=== PATIENT | female | born 1990 | race Caucasian/White ===

== ENCOUNTER 2020-01-01 19:56 | Observation (INO) | payer SELFPAY ==
[2020-01-01] VITALS (8 sets, daily range): BP systolic 107–141; BP diastolic 55–90; PULSE 87–94; RESP 11–18; TEMP 36.1–36.8; O2SAT 98–100
--- NOTE | 2020-01-01 | PATH_ITS ---
[facility] Accession Number: [id number] . 01 Material submitted: . product of conception - PRODUCTS OF CONCEPTION . 02 Diagnosis: Products of Conception, Removal: No chorionic villi identified. Decidualized endometrium with Sellers-Sofia changes. No evidence of neoplasia or hyperplasia. MRV 01/06/2020 1309 Local . 02 Electronically signed: . Annabelle Joseph MD, Pathologist NPI- [id number] . 01 Gross description: . The specimen is received in formalin, labeled products of conception, and consists of multiple red-brown fragments of soft tissue and clotted blood measuring 4.0 x 3.0 x 2.0 cm in aggregate. No chorionic villi or parts are identified. The specimen is entirely submitted in cassettes A1-A3. ([id number]) /FRR 01/03/2020 1531 Local . 02 Pathologist provided ICD-10: O73.0 . 02 CPT . 083215 Performed at: 01 [facility] [address] [facility] [place], [place], [place] [id number] MD Stone Pires MD Phone: [phone] Performed at: 02 [facility] [address] [place], [place] [id number] MD Annabelle Joseph MD Phone: [phone]
--- NOTE | 2020-01-01 20:27 | DI.US.S_ITS ---
PROCEDURE: US PELVIC COMPLETE INDICATIONS: SEVERE PAIN POST SURGICAL TAB TODAY TECHNIQUE: Real-time scanning was performed of the pelvic organs, with image documentation. Additional endovaginal scanning was necessary due to incomplete visualization of the adnexal and endometrial structures by transabdominal scanning. COMPARISON: None. FINDINGS: Transabdominal scanning: Limited scanning through the kidneys shows no hydronephrosis. No pathologic free abdominal or pelvic fluid. Endovaginal scanning: Uterus: Uterus is normal in size at 9.0 x 5.9 x 2.6 cm. The endometrium measures 12.0 mm in combined thickness. There is a small 0.7 x 0.6 x 0.7 centimeter complex fluid collection in the endometrial cavity. No pole or yolk sac identified in the endometrial fluid collection. Ovaries: Ovaries are not identified and cannot be evaluated. IMPRESSION: Small 0.7 x 0.6 x 0.7 centimeter complex fluid collection in the endometrial cavity. Finding is nonspecific may represent clot or retained products of conception. Recommend correlation with beta HCG and short-term follow-up ultrasound. Dictated by: Stacey Hameed MD, PhD on 01/01/2020 at 21:54 Approved by: Stacey Hameed MD, PhD on 01/01/2020 at 21:57
[2020-01-01] MEDS: SODIUM CHLORIDE 0.9% 1,000 ML 1000 ML IV (20:43)
[2020-01-01] MEDS: KETOROLAC 60 MG/2 ML VIAL 15 MG IV (20:43)
[2020-01-01] MEDS: HYDROMORPHONE 0.5 MG INJ IV ×4 (20:43→21:58)
[2020-01-01 20:44] LABS: Add Manual Diff / Slide Review NO; Basophils Absolute Auto 0 /uL (0-100); Basophils Percent Auto 0.1 % (0-2); Eosinophils Absolute Auto 0 /uL (0-450); Eosinophils Percent Auto 0.6 % (2-4); Hematocrit 38.5 % (36-46); Hemoglobin 13.2 g/dL (12.0-16.0); Lymphocytes Absolute Auto 1000 /uL (1100-4500); Lymphocytes Percent Auto 14.7 % (25-40); Mean Corpuscular HGB Conc 34.3 % (30-36); Mean Corpuscular Hemoglobin 30.2 PG (26-34); Mean Corpuscular Volume 88.1 fL (80-100); Monocytes Absolute Auto 0 /uL (0-900); Monocytes Percent Auto 0.3 % (3-14); Neutrophils Absolute Auto 5900 /uL (1500-7000); Neutrophils Percent Auto 84.3 % (50-75); Platelet Count 260 X10^3/uL (150-400); Red Blood Cell Count 4.37 X10^6/uL (4.0-5.2); Red Cell Distribution Width 11.7 % (11.6-14.8)
[2020-01-01] MEDS: ONDANSETRON 4 MG/2 ML INJ IV (20:46)
[2020-01-01 20:54] LABS: Alanine Aminotransferase 15 IU/L (<35); Albumin 4.3 g/dL (3.5-5.0); Albumin Globulin Ratio 1.2 (1.0-2.8); Alkaline Phosphatase 50 U/L (38-126); Aspartate Aminotransferase 22 IU/L (14-36); BUN Creatinine Ratio 14.6 (6-22); Bilirubin Total 0.3 mg/dL (0.2-1.3); Blood Urea Nitrogen 15 mg/dL (7-17); Calcium 9.3 mg/dL (8.4-10.2); Carbon Dioxide 27 mmol/L (22-32); Chloride 103 mmol/L (98-107); Estimated Glomerular Filt Rate > 60.0 mL/min (>60); Globulin 3.5 g/dL (1.7-4.1); Glucose 78 mg/dL (70-100); HEMOLYSIS < 15 (0-50); Potassium 4.2 mmol/L (3.4-5.1); Sodium 136 mmol/L (137-145); Total Protein 7.8 g/dL (6.3-8.2)
--- NOTE | 2020-01-01 21:55 | ED_ITS ---
HPI - Abdominal Pain <Melissa Yanes MD - Last Filed: 01/01/20 22:59> General Chief Complaint: Abdominal Pain Stated Complaint: States in [place], not feeling well Time Seen by Provider: 01/01/20 20:20 Source: patient Mode of arrival: Wheelchair Limitations: no limitations History of Present Illness HPI narrative: 29-year-old presents approximately 8 hours after medical t ermination of 6 week . Procedure was done in [place], patient is on the way back to her home in [place]. She began having severe abdominal pain cramping vomiting and presents for further evaluation today. She reports scant vaginal bleeding only. She notes that her 1st was at 6 weeks and complicated by significant bleeding issues that required a 2nd trip back to the operating room and a 2 week follow-up hospital stay. She is not clear on any of the remainder of the medical details. Medication she has taken today include 2 Valium prior to her procedure, conscious sedation with IV medications (presumed Versed and fentanyl but not confirmed) 1 marijuana edible and 3 Tylenol. Related Data Allergies Allergy/AdvReac Type Severity Reaction Status Date / Time No Known Drug Allergies Allergy Verified 01/01/20 20:38 Review of Systems <Melissa Yanes MD - Last Filed: 01/01/20 22:59> Review of Systems Narrative: Pertinent positive and negative findings as per HPI Remainder of review of systems is otherwise unremarkable for Constitutional: Fevers, chills, weakness ENT: No sore throat, neck pain, ear pain CV: Chest pain, palpitations, dyspnea on exertion Respiratory: Cough, wheeze, dyspnea MS: Muscle weakness, numbness, Skin: Rashes, nonhealing lesions Neuro: Syncope, dizziness, tingling Patient History <Melissa Yanes MD - Last Filed: 01/01/20 22:59> Surgical History (Updated 01/01/20 @ 22:00 by Melissa Yanes MD) H/O breast augmentation (Acute) Social History Smoking Status: Never smoker Smoking Status: Never smoker alcohol intake frequency: a few times a month Substance Use Type: marijuana Exam <Melissa Yanes MD - Last Filed: 01/01/20 22:59> Narrative Exam Narrative: General: Healthy appearing, significant mid pelvic pain HEENT: Moist mucous membranes, normal sclera with reactive pupils, Respiratory: Lungs are clear to auscultation, no wheezing no rales no rhonchi. Full and symmetrical air movement Cardiac: Regular rate and rhythm no murmurs no bruits Abdomen: Soft tender suprapubic area, good bowel tones, no flank pain Skin: Warm and dry, no rashes Neurologic: Grossly neurologically intact with no obvious asymmetries or abnormalities Extremities: No trauma, well perfused Psych: Cooperative, appropriate insight and affect Initial Vital Signs Initial Vital Signs: Vital Signs Temperature 98.2 F 01/01/20 20:07 Pulse Rate 88 01/01/20 20:07 Respiratory Rate 18 01/01/20 20:07 Blood Pressure 141/90 H 01/01/20 20:07 Pulse Oximetry 100 01/01/20 20:07 <Jenny Dsouza MD - Last Filed: 01/01/20 22:29> Initial Vital Signs Initial Vital Signs: Vital Signs Temperature 98.2 F 01/01/20 20:07 Pulse Rate 88 01/01/20 20:07 Respiratory Rate 18 01/01/20 20:07 Blood Pressure 141/90 H 01/01/20 20:07 Pulse Oximetry 100 01/01/20 20:07 Course <Melissa Yanes MD - Last Filed: 01/01/20 22:59> Orders Ordered: ED Orders 01/01/20 20:27 US pelvic complete Stat 01/01/20 20:37 Complete Blood Count AUTO DIFF Stat Comprehensive Metabolic Panel Stat 01/01/20 21:57 COVID19 Stat Fentanyl (Sublimaze) 0 mcg IV Q5M PRN PRN Reason: Pain, Moderate (4-6) Hydromorphone HCl (Dilaudid) 0.5 mg IV Q15MIN PRN PRN Reason: Pain, Last Admin: 01/01/20 21:44 Dose: 0.5 mg Documented by: Admin: 01/01/20 21:16 Dose: 0.5 mg Documented by: Admin: 01/01/20 20:43 Dose: 0.5 mg Documented by: RMARTIN Hydromorphone HCl (Dilaudid) 0.5 mg IV Q15MIN PRN PRN Reason: Pain, Last Admin: 01/01/20 21:58 Dose: 0.5 mg Documented by: NASEEM Cefazolin Sodium/Dextrose (Ancef) 2 gm in 100 mls @ 200 mls/hr IV PREOP JESICA Meperidine HCl (Demerol) 12.5 mg IV PACUNOW PRN PRN Reason: Mild pain or shivering Metoclopramide HCl (Reglan) 10 mg IV NOW PRN PRN Reason: Nausea And Vomiting Ondansetron HCl (Zofran) 4 mg IV NOW PRN PRN Reason: Nausea And Vomiting Oxycodone/Acetaminophen (Percocet 5/325) 1 tab PO PACUNOW PRN PRN Reason: Mild or Moderate Pain Discontinued Medications Sodium Chloride (Normal Saline 0.9%) 1,000 mls @ 1,000 mls/hr IV BOLUS ONE Stop: 01/01/20 21:26 Last Infusion: 01/01/20 22:45 Dose: 0 mls/hr Documented by: Admin: 01/01/20 20:43 Dose: 1,000 mls/hr Documented by: NASEEM Ketorolac Tromethamine (Toradol) 15 mg IV NOW ONE Stop: 01/01/20 20:28 Last Admin: 01/01/20 20:43 Dose: 15 mg Documented by: NASEEM Ondansetron HCl (Zofran) 4 mg IV NOW ONE Stop: 01/01/20 20:45 Last Admin: 01/01/20 20:46 Dose: 4 mg Documented by: NASEEM Oxycodone/Acetaminophen (Endocet 5/325 Prepack) 1 bottle MIS SEEINSTR ONE Stop: 01/01/20 22:04 Last Admin: 01/01/20 22:09 Dose: 1 bottle Documented by: NASEEM Vital Signs Vital signs: Vital Signs - 8 hr 01/01/20 20:07 01/01/20 21:42 01/01/20 21:55 Temperature 98.2 F Pulse Rate 88 87 91 H Respiratory Rate 18 16 Blood Pressure 141/90 H 126/58 L Pulse Oximetry 100 98 98 01/01/20 22:00 Temperature Pulse Rate 87 Respiratory Rate Blood Pressure 127/59 L Pulse Oximetry 98 <Jenny Dsouza MD - Last Filed: 01/01/20 22:29> Orders Ordered: ED Orders 01/01/20 20:27 US pelvic complete Stat 01/01/20 20:37 Complete Blood Count AUTO DIFF Stat Comprehensive Metabolic Panel Stat 01/01/20 21:57 COVID19 Stat Fentanyl (Sublimaze) 0 mcg IV Q5M PRN PRN Reason: Pain, Moderate (4-6) Hydromorphone HCl (Dilaudid) 0.5 mg IV Q15MIN PRN PRN Reason: Pain, Last Admin: 01/01/20 21:44 Dose: 0.5 mg Documented by: Admin: 01/01/20 21:16 Dose: 0.5 mg Documented by: Admin: 01/01/20 20:43 Dose: 0.5 mg Documented by: NASEEM Hydromorphone HCl (Dilaudid) 0.5 mg IV Q15MIN PRN PRN Reason: Pain, Last Admin: 01/01/20 21:58 Dose: 0.5 mg Documented by: NASEEM Cefazolin Sodium/Dextrose (Ancef) 2 gm in 100 mls @ 200 mls/hr IV PREOP JESICA Meperidine HCl (Demerol) 12.5 mg IV PACUNOW PRN PRN Reason: Mild pain or shivering Metoclopramide HCl (Reglan) 10 mg IV NOW PRN PRN Reason: Nausea And Vomiting Ondansetron HCl (Zofran) 4 mg IV NOW PRN PRN Reason: Nausea And Vomiting Oxycodone/Acetaminophen (Percocet 5/325) 1 tab PO PACUNOW PRN PRN Reason: Mild or Moderate Pain Discontinued Medications Sodium Chloride (Normal Saline 0.9%) 1,000 mls @ 1,000 mls/hr IV BOLUS ONE Stop: 01/01/20 21:26 Last Infusion: 01/01/20 22:45 Dose: 0 mls/hr Documented by: Admin: 01/01/20 20:43 Dose: 1,000 mls/hr Documented by: NASEEM Ketorolac Tromethamine (Toradol) 15 mg IV NOW ONE Stop: 01/01/20 20:28 Last Admin: 01/01/20 20:43 Dose: 15 mg Documented by: NASEEM Ondansetron HCl (Zofran) 4 mg IV NOW ONE Stop: 01/01/20 20:45 Last Admin: 01/01/20 20:46 Dose: 4 mg Documented by: RMARTIN Oxycodone/Acetaminophen (Endocet 5/325 Prepack) 1 bottle MISC SEEINSTR ONE Stop: 01/01/20 22:04 Last Admin: 01/01/20 22:09 Dose: 1 bottle Documented by: RMVERONIKA Vital Signs Vital signs: Vital Signs - 8 hr 01/01/20 20:07 01/01/20 21:42 01/01/20 21:55 Temperature 98.2 F Pulse Rate 88 87 91 H Respiratory Rate 18 16 Blood Pressure 141/90 H 126/58 L Pulse Oximetry 100 98 98 01/01/20 22:00 Temperature Pulse Rate 87 Respiratory Rate Blood Pressure 127/59 L Pulse Oximetry 98 MDM - Abdominal Pain <Melissa Yanes MD - Last Filed: 01/01/20 22:59> Medical Records Attestation: I reviewed the patient's medical records. Lab Data Attestation: I reviewed the patient's lab results. Result diagrams: 01/01/20 20:37 01/01/20 20:37 Labs: Lab Results 01/01/20 01/01/20 01/01/20 Range/Units 20:37 20:37 21:57 WBC 7.0 (4.5-11.0) X10^3/uL RBC 4.37 (4.0-5.2) X10^6/uL Hgb 13.2 (12.0-16.0) g/dL Hct 38.5 (36-46) % MCV 88.1 (80-100) fL MCH 30.2 (26-34) PG MCHC 34.3 (30-36) % RDW 11.7 (11.6-14.8) % Plt Count 260 (150-400) X10^3/uL Neut % (Auto) 84.3 H (50-75) % Lymph % (Auto) 14.7 L (25-40) % Banner % (Auto) 0.3 L (3-14) % Eos % (Auto) 0.6 L (2-4) % Baso % (Auto) 0.1 (0-2) % Neut # (Auto) 5900 (4595-8090) /uL Lymph # (Auto) 1000 L (7174-7192) /uL Banner # (Auto) 0 (0-900) /uL Eos # (Auto) 0 (0-450) /uL Baso # (Auto) 0 (0-100) /uL Sodium 136 L (137-145) mmol/L Potassium 4.2 (3.4-5.1) mmol/L Chloride 103 (98-107) mmol/L Carbon Dioxide 27 (22-32) mmol/L BUN 15 (7-17) mg/dL Creatinine 1.03 (0.52-1.04) mg/dL Estimated GFR > 60.0 (>60) mL/min BUN/Creatinine Ratio 14.6 (6-22) Glucose 78 (70-100) mg/dL Calcium 9.3 (8.4-10.2) mg/dL Total Bilirubin 0.3 (0.2-1.3) mg/dL AST 22 (14-36) IU/L ALT 15 (<35) IU/L Alkaline Phosphatase 50 (38-126) U/L Total Protein 7.8 (6.3-8.2) g/dL Albumin 4.3 (3.5-5.0) g/dL Globulin 3.5 (1.7-4.1) g/dL Albumin/Globulin Ratio 1.2 (1.0-2.8) COVID-19 PCR Negative (Negative) Imaging Data Pelvic ultrasound: My Impression: Per Tech: Significant tenderness on exam, no free-fluid ovaries are not visualized there is no pole in the uterus however there still is a gestational sac in quite a bit of debris in the uterine cavity. Minimal vaginal bleeding only. [facility] Narrative Medical decision making narrative: 29-year-old woman now approximately 8 hours post medical with increased pelvic pain and retained products of conception noted on pelvic ultrasound. Pain is significant enough that she does not believe she will be able to cross [place] border [place] get back [place] to [place] and would like to proceed with D&C for definitive treatment. Care is reviewed with Dr. Dsouza who will be in shortly to take the patient to the operating room. <Jenny Dsouza MD - Last Filed: 01/01/20 22:29> Lab Data Labs: Lab Results 01/01/20 01/01/20 01/01/20 Range/Units 20:37 20:37 21:57 WBC 7.0 (4.5-11.0) X10^3/uL RBC 4.37 (4.0-5.2) X10^6/uL Hgb 13.2 (12.0-16.0) g/dL Hct 38.5 (36-46) % MCV 88.1 (80-100) fL MCH 30.2 (26-34) PG MCHC 34.3 (30-36) % RDW 11.7 (11.6-14.8) % Plt Count 260 (150-400) X10^3/uL Neut % (Auto) 84.3 H (50-75) % Lymph % (Auto) 14.7 L (25-40) % Banner % (Auto) 0.3 L (3-14) % Eos % (Auto) 0.6 L (2-4) % Baso % (Auto) 0.1 (0-2) % Neut # (Auto) 5900 (5100-1448) /uL Lymph # (Auto) 1000 L (9149-1834) /uL Banner # (Auto) 0 (0-900) /uL Eos # (Auto) 0 (0-450) /uL Baso # (Auto) 0 (0-100) /uL Sodium 136 L (137-145) mmol/L Potassium 4.2 (3.4-5.1) mmol/L Chloride 103 (98-107) mmol/L Carbon Dioxide 27 (22-32) mmol/L BUN 15 (7-17) mg/dL Creatinine 1.03 (0.52-1.04) mg/dL Estimated GFR > 60.0 (>60) mL/min BUN/Creatinine Ratio 14.6 (6-22) Glucose 78 (70-100) mg/dL Calcium 9.3 (8.4-10.2) mg/dL Total Bilirubin 0.3 (0.2-1.3) mg/dL AST 22 (14-36) IU/L ALT 15 (<35) IU/L Alkaline Phosphatase 50 (38-126) U/L Total Protein 7.8 (6.3-8.2) g/dL Albumin 4.3 (3.5-5.0) g/dL Globulin 3.5 (1.7-4.1) g/dL Albumin/Globulin Ratio 1.2 (1.0-2.8) COVID-19 PCR Negative (Negative) Discharge Plan Departure Patient Disposition: Admitted to Surgery Clinical Impression: Retained products of conception Discharge Date/Time: 01/01/20 22:49 Admit Date/Time: 01/01/20 22:45 Admit Provider: Jenny Dsouza
[2020-01-01] MEDS: OXYCODONE/APAP 5/325 PREPACK 1 BOTTLE MISC (22:09)
[2020-01-01 22:23] LABS: COVID19 -Nasal RAPID Negative (Negative)
--- NOTE | 2020-01-01 22:30 | PM.PREOP ---
Pre-operative Note COVID-19 COVID-19 status: Result pending Interval Note History & Physical reviewed/Exam performed by Physician: Yes Changes to H&P: No
--- NOTE | 2020-01-01 22:30 | PM.GYNHP.1 ---
History of Present Illness History of Present Illness Reason for admission: incomplete Narrative: Symone Sanford is a 29 year old female who comes into the ER complaining of severe lower abdominal pain after surgical termination earlier today. Patient was traveling and presented to the emergency room because of her severe pain. Patient does relate that she had a termination 6 years ago that she had retained products of conception and severe pain for days that she required additional surgery and was hospitalized for 2 weeks afterwards. [facility] Surgical History (Updated 01/01/20 @ 22:00 by Melissa Yanes MD) H/O breast augmentation (Acute) Social History Smoking Status: Never smoker Meds Home Medications and Allergies Allergies Allergy/AdvReac Type Severity Reaction Status Date / Time No Known Drug Allergies Allergy Verified 01/01/20 20:38 Review of Systems Review of Systems Narrative: Patient has nausea from her pain. No fevers. She has lower abdominal lower back pain but no upper abdominal pain. Mild vaginal bleeding. ROS: Yes All systems reviewed with the patient and are negative except as otherwise documented Exam Vital Signs (past 8 hours): - 01/01/20 20:07 01/01/20 21:42 01/01/20 21:55 Temperature 98.2 F Pulse Rate 88 87 91 H Respiratory Rate 18 16 Blood Pressure 141/90 H 126/58 L Pulse Oximetry 100 98 98 01/01/20 22:00 Temperature Pulse Rate 87 Respiratory Rate Blood Pressure 127/59 L Pulse Oximetry 98 Oxygen Delivery Method Room Air Narrative Exam Narrative: HEENT exam within normal limits. Lungs are clear to auscultation percussion. Heart is regular rate and rhythm no S3-S4 or murmurs. Abdomen is soft with mild tenderness in the lower abdomen without rebound. Minimal vaginal bleeding. Pelvic exam not performed. ER physician stated the pelvic exam was extremely tender to the patient. Extremities without edema and nontender. Objective Imaging US - abdomen: Radiologist's impression: Gestational sac with no pole measuring 6 weeks Labs Result Diagrams: 01/01/20 20:37 01/01/20 20:37 Labs: Laboratory Results - last 24 hr 01/01/20 01/01/20 01/01/20 20:37 20:37 21:57 WBC 7.0 RBC 4.37 Hgb 13.2 Hct 38.5 MCV 88.1 MCH 30.2 MCHC 34.3 RDW 11.7 Plt Count 260 Neut % (Auto) 84.3 H Lymph % (Auto) 14.7 L Norman % (Auto) 0.3 L Eos % (Auto) 0.6 L Baso % (Auto) 0.1 Neut # (Auto) 5900 Lymph # (Auto) 1000 L Norman # (Auto) 0 Eos # (Auto) 0 Baso # (Auto) 0 Sodium 136 L Potassium 4.2 Chloride 103 Carbon Dioxide 27 BUN 15 Creatinine 1.03 Estimated GFR > 60.0 BUN/Creatinine Ratio 14.6 Glucose 78 Calcium 9.3 Total Bilirubin 0.3 AST 22 ALT 15 Alkaline Phosphatase 50 Total Protein 7.8 Albumin 4.3 Globulin 3.5 Albumin/Globulin Ratio 1.2 COVID-19 PCR Negative Assessment & Plan Assessment and plan (1) Retained products of conception: Status: Acute Assessment & Plan narrative: Patient with retained products of conception in significant pain although otherwise stable who is requesting repeat D&C rather than medical therapy with Cytotec. Consent form was reviewed with patient. Risk of perforation of the uterus with damage to internal structures such as bowel, bladder, ureters that could require opening abdomen to repair or additional surgery. Risk of infection. Risk of bleeding enough to require blood transfusion. Reaction to medication or anesthetic that could result in or permanent or partial disability. Risk of retained products of conception that could require additional surgery in the future or she could pass tissue. Consent form was signed and questions answered.
[2020-01-01] MEDS: CEFAZOLIN 2 GM/100 ML FROZ.PIGGY IV (22:55)
--- NOTE | 2020-01-01 23:08 | SUR.OPER ---
Lithotomy on padded OR bed, head on pillow, arms secured on padded arm boards at <90 degrees abduction. Legs secured in padded yellow fins stirrups.
--- NOTE | 2020-01-01 23:29 | PM.OP.1 ---
Operative Date/Time/Diagnoses Date of procedure: 01/01/20 Time of procedure: 23:30 Pre-op diagnosis: Retained products of conception Post-op diagnosis: same Procedure & Clinicians Procedure: Suction D&C Same procedure as scheduled: Yes Indications: Retained products of conception after prior elective Surgeon: Jenny Dsouza Click Yes if Unassisted: Yes Anesthesia Type: General Operative Notes Findings: Minimal retained products of conception, normal exam under anesthesia Closure Type: not applicable Specimen(s): other (Retained products of conception) Estimated Blood Loss (mL): 25 Blood products transfused: none Procedure in detail: Patient was brought to the operating room where she underwent general anesthesia. Patient was placed in low Yellofin stirrups and prepped and draped in the usual sterile fashion. 2 g Ancef were in prior to beginning of the case. A check system was reviewed with the staff in the room. A single-tooth tenaculum was placed on the anterior lip of the cervix and the cervix was dilated to a #8 Hegar dilator. There was a tight area at the interior os and the uterus was retroverted. Suction followed by sharp curetting was performed. Repeat suction performed. Patient went to recovery room in stable condition. Counts of instruments since sponges were correct. Complications: none Post-operative Condition: stable Disposition: same day surgery Plan for aftercare: Discharge when awake and stable
[2020-01-01] MEDS: OXYCODONE/ACETAMINOPHEN 5/325 TABLET 1 TAB PO (23:46)
[2020-01-02 00:06] VITALS: BP 129/67; PULSE 97; RESP 11; TEMP 36.4; O2SAT 99
[2020-01-02 00:11] VITALS: BP 130/75; PULSE 77; RESP 14; TEMP 36.2; O2SAT 98
[2020-01-02] MEDS: OXYCODONE/ACETAMINOPHEN 5/325 TABLET 1 TAB PO (00:12)
[2020-01-02] MEDS: LACTATED RINGERS 1,000 ML 42 ML IV (00:30)
== END 2020-01-02 00:23 | disposition home or self-care (01) ==
LOC: ED 22:36 → AC 22:47
PROVIDERS: Admitting Provider Specialist; Emergency Provider Emergency Medicine; Referring Provider Emergency Medicine; Visit Provider Specialist
PROC: (CPT 58120; principal; 2020-01-01 22:45)
DX: O07.4 Failed attempted termination of pregnancy without complication (principal); R10.9 Unspecified abdominal pain; Z3A.01 Less than 8 weeks gestation of pregnancy; Z11.59 Encounter for screening for other viral diseases
CPT/HCPCS: 59812; 36415; 76830; 76856; 80053; 85025; 87635; 96361; 96374; 96375; 96376; 99284; G0378; J0330; J0690; J1100; J1170; J1885; J2405; J2704; J3010